=== PATIENT | female | born 1940 | race Hispanic/Latino ===

== ENCOUNTER 2017-05-20 10:09 | Emergency (ER) | payer OTHER ==
[~2017-05-20] VITALS: Ht 165.1 cm; Wt 71.7 kg
[2017-05-20] MEDS ORDERED: AUGMENTIN 500-1 EACH PO (11:01)
== END 2017-05-20 11:03 | disposition home or self-care (01) ==
LOC: FSED 10:09
DX: L03.031 Cellulitis of right toe (principal); E11.9 Type 2 diabetes mellitus without complications; E78.5 Hyperlipidemia, unspecified
CPT/HCPCS: 99284

== ENCOUNTER 2023-02-01 17:20 | Emergency (ER) | payer MEDICARE, OTHER ==
[~2023-02-01] VITALS: Ht 165.1 cm; Wt 71.7 kg
[~2023-02-01 17:20] MED LIST: AUGMENTIN 500-1 EACH PO
[2023-02-01 18:31] LABS: BASOPHILS % 0.3 % (0.0-1.0); EOSINOPHILS # (AUTO) 0.1 (0.0-0.4); LYMPHOCYTES # (AUTO) 1.5 (1.0-3.2); LYMPHOCYTES % 21.7 % (18.0-39.1); MEAN CORPUSCULAR HEMOGLOBIN 31.2 pg (28-32); MEAN CORPUSCULAR HGB CONC 35.1 g/dL (31-35); MEAN CORPUSCULAR VOLUME 88.7 fL (81-99); MONOCYTES # (AUTO) 0.7 (0.2-0.8); MONOCYTES % 10.2 % (4.4-11.3); NEUTROPHILS # (AUTO) 4.5 (2.1-6.9); NEUTROPHILS % 65.7 % (38.7-80.0); RED BLOOD COUNT 4.17 x10e6/uL (3.6-5.1); RED CELL DISTRIBUTION WIDTH 16.9 % (11.7-14.4); WHITE BLOOD COUNT 6.86 x10e3/uL (4.8-10.8)
[2023-02-01 18:33] LABS: PLATELET COUNT 71 x10e3/uL (140-360)
[2023-02-01 18:43] LABS: ALBUMIN 2.5 g/dL (3.5-5.0); ALBUMIN/GLOBULIN RATIO 0.6 (0.8-2.0); ANION GAP 12.8 mmol/L (8-16); CALCIUM 8.5 mg/dL (8.4-10.2); CREATININE, SERUM 0.76 mg/dL (0.57-1.11); POTASSIUM 3.8 mmol/L (3.5-5.1)
[2023-02-01] MEDS ORDERED: IOPAMIDOL 370 MG/ML 100 ML INFUS..BTL INJ ONE (19:05)
[2023-02-01] MEDS ORDERED: PAXLOVID 300-11 EACH PO (21:21)
[2023-02-01] MEDS ORDERED: PROGESTERONE200 MG PO (21:21)
[2023-02-01 22:08] VITALS: O2SAT 98
== END 2023-02-01 22:13 | disposition home or self-care (01) ==
LOC: ER 18:00
DX: N93.8 Other specified abnormal uterine and vaginal bleeding (principal); U07.1 COVID-19; K74.60 Unspecified cirrhosis of liver; I10 Essential (primary) hypertension; E78.5 Hyperlipidemia, unspecified; E78.00 Pure hypercholesterolemia, unspecified
CPT/HCPCS: 36415; 74177; 76856; 80053; 85025; 86850; 86900; 99284; Q9967; U0002